=== PATIENT | female | born 2000 | race Caucasian/White ===

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

== ENCOUNTER 2022-07-29 19:47 | Outpatient (CLI) | payer OTHER, SELFPAY ==
--- NOTE | 2022-08-08 16:26 | WPDSLEEPSTUD ---
Sleep Study Date of Study: 07/29/22 Ordering Provider: Josiah Álvarez MD Interpreting Physician: Sally Isabel MD Sleep Study Type: Polysomnogram Height: 1.7 m Weight: 110.223 kg Body Mass Index: 38.0 Neck Circumference (inches): 16 [place]: 8 Reason for Sleep Study History of obstructive sleep apnea diagnosed age 19, was on CPAP, had tonsils and adenoids removed, re-testing; she is still excessively sleepy in the day. Sleep History Graciela Yates is a 22-year-old female with a history of fatigue dating back to age 15 and sleep apnea diagnosed at age 19. She was sleeping 14-15 hours a day and was constantly feeling exhausted. She was treated for sleep apnea. In September 2019, she had her tonsils and adenoids removed with improvement in symptoms of sleep apnea. She is still tired in the day but it is manageable. She does not nap as frequently. She does continue to wake up at night. She is excessively sleepy in the daytime with difficulty waking in the morning. She occasionally awakens from sleep feeling short of breath. She does not awaken at night with heartburn, belching or coughing. She constantly snores, sometimes it is loud enough that others complain about it. She frequently has trouble sleeping with a cold. She does not gasp for breath at night. She frequently has breathing problems at night observed by others. She frequently sweats excessively at night. She does not notice her heart pounding or beating irregularly at night. She rarely falls asleep during the day. She never falls asleep involuntarily or while driving. She does not have loss of muscle tone with strong emotion. She frequently has daytime difficulties due to excessive sleepiness. She does not feel paralyzed on waking or falling asleep. She frequently has vivid dreamlike scenes on waking or falling asleep. She does not feel afraid to go to sleep. She frequently has nightmares. She occasionally remembers her dreams. She constantly has racing thoughts. She occasionally feels sad or depressed. She frequently feels anxiety. She frequently has muscular tension. She constantly notices parts of her body jerking. She constantly kicks at night. She always has crawling and aching feelings in her legs and leg pain during the night. She constantly has morning jaw pain. She constantly grinds her teeth at night. She constantly is bothered by pain during the day and awakened by pain at night. She constantly wakes up feeling stiff in the morning with sore achy muscles and pain in the neck and spine. She has memory problems, concentration difficulties, headaches and nightmares. Normal bedtime is 10:00 p.m., falling asleep within 1 hour. She typically wakes 4-5 times during the night for unclear reasons. Her normal wake up time is 8:00 a.m.. She estimates getting 9-10 hours of sleep at night. On weekends, she goes to bed later, midnight to 1:00 a.m. and sleeps later, waking at noon. She does not generally take naps. A short nap is not refreshing. She is drowsy after waking for 3 hours or longer. She feels better in the evening compared to other times of day. Habits: Never smoked tobacco. Caffeine 1 cup of coffee per day. No alcohol or recreational substances. [facility] Past Medical History Medical History (Updated 08/08/22 @ 16:55 by Sally Isabel MD) ADHD Depression Obstructive sleep apnea diagnosed age 19 Orthostatic hypotension Surgical History Surgical History (Updated 08/08/22 @ 16:34 by Sally Isabel MD) S/P T&A (status post tonsillectomy and adenoidectomy) Social History Social History (Updated 08/08/22 @ 16:34 by Sally Isabel MD) Smoking status: Never smoker Alcohol intake: never Medications Medications: dextroamphetamine -amphetamine 25 mg extended release, 1 daily Sleep Procedure This test was performed using the [employer] [facility] multiple channel system including EOG, EEG, submental EMG, EKG, nasa
[2022-08-08 17:10] VITALS: BMI 38.0
== END 2022-07-30 06:29 | disposition home or self-care (01) ==
LOC: CHSCSM 19:49
PROVIDERS: PCP Family Medicine; Visit Provider Family Medicine
DX: G25.81 Restless legs syndrome (principal); R06.83 Snoring; G47.30 Sleep apnea, unspecified
CPT/HCPCS: 95810